=== PATIENT | female | born 1980 | race Hispanic/Latino ===

== ENCOUNTER 2022-07-22 21:01 | Emergency (ER) | payer OTHER ==
[~2022-07-22] VITALS: Ht 167.6 cm; Wt 90.3 kg
[2022-07-22 23:22] LABS: BASOPHILS % (AUTO) 0.7 % (0.0-5.0); HEMATOCRIT 29.5 % (36-48); LYMPHOCYTES % (AUTO) 16.7 % (21.0-51.0); MEAN CORPUSCULAR HEMOGLOBIN 18.6 pg (27.0-33.0); MEAN CORPUSCULAR HGB CONC 29.8 g/dL (32.0-36.0); MEAN CORPUSCULAR VOLUME 62.4 fL (79-99); MONOCYTES % (AUTO) 5.3 % (3.0-13.0); PLATELET COUNT (AUTO) 531 K/uL (130-400); RED BLOOD CELL COUNT(AUTO) 4.73 MIL/uL (4.00-5.50); RED CELL DISTRIBUTION WIDTH 18.4 % (11.0-15.5); WHITE BLOOD COUNT (AUTO) 14.6 K/uL (4.8-10.8)
[2022-07-22 23:34] LABS: APPEARANCE,URINE CLEAR (CLEAR); BILIRUBIN,URINE NEGATIVE (NEGATIVE); COLOR,URINE YELLOW (YELLOW); GLUCOSE, URINE (UA) NEGATIVE (NEGATIVE); KETONES,URINE 10 mg/dL (NEGATIVE); LEUKOCYTE ESTERASE ,URINE NEGATIVE Leu/uL (NEGATIVE); NITRATE,URINE NEGATIVE (NEGATIVE); OCCULT BLOOD,URINE SMALL (NEGATIVE); PROTEIN,URINE 10 mg/dL (NEGATIVE); UROBILINOGEN,URINE 0.2 mg/dL (0.2-1.0)
[2022-07-22 23:35] LABS: HCG,QUALITATIVE URINE NEGATIVE (NEGATIVE)
[2022-07-22 23:38] LABS: MUCUS,URINE RARE LPF (None Seen); SQUAMOUS EPITHELIAL CELL,UR FEW /HPF (0-2)
[2022-07-22 23:39] LABS: ALBUMIN 3.8 g/dL (3.5-5.0); POTASSIUM 3.3 mmol/L (3.5-5.1); TOTAL PROTEIN, SERUM 8.3 g/dL (6.0-8.3)
[2022-07-22 23:46] LABS: CREATININE 0.7 mg/dL (0.5-1.5)
[2022-07-23] MEDS ORDERED: ONDANSETRON 4MG INJ ONE ×2 (01:19→04:36)
[2022-07-23] MEDS ORDERED: MORPHINE 2 MG SYG IVP ONE (04:30)
[2022-07-23] MEDS ORDERED: ONDANSETRON 4MG INJ IVP ONE (04:30)
[2022-07-23] MEDS ORDERED: 0.9%NACL 1000ML 1,000 ML IV ONE (05:00)
[2022-07-23 09:03] VITALS: BP 161/99
[2022-07-23] MEDS ORDERED: ACET-2079 PO (09:20)
[2022-07-23] MEDS ORDERED: CEPH500B PO (09:20)
[2022-07-23] MEDS ORDERED: TAMS-1 PO (09:20)
== END 2022-07-23 09:47 | disposition home or self-care (01) ==
LOC: EDH 21:01
DX: N20.9 Urinary calculus, unspecified (principal); R11.2 Nausea with vomiting, unspecified; I10 Essential (primary) hypertension; Z88.1 Allergy status to other antibiotic agents; Z88.2 Allergy status to sulfonamides
CPT/HCPCS: 99285; 80053; 85025; 81001; 81025; 36415; 74176; 96374; 96361; 96375; 96376; J7030; J2405 ×2